=== PATIENT | female | born 1975 | race Caucasian/White ===

== ENCOUNTER 2016-07-14 16:25 | Emergency (ER) | payer OTHER ==
[~2016-07-14] VITALS: Ht 167.6 cm; Wt 80.3 kg
--- NOTE | 2016-07-14 17:58 | ED GI/GU/ABDOMINAL COMPLAINT ---
History of Present Illness General Chief Complaint: Abdominal Pain/Flank Pain Stated Complaint: SIB DR. CEE FOR ABD PAIN Source: patient, PCP Exam Limitations: no limitations Allergies Coded Allergies: adhesive tape (SURGICAL TAPE - BLISTERS, RASH 07/14/16) Reconcile Medications Albuterol Sulfate (Proair Hfa) 90 MCG HFA.AER.AD 2 PUF INH PRN EXERCISE INDUCED ASTHMA (Reported) Calcium Carbonate (Oyster Shell Calcium) (Unknown Strength) TABLET (Unknown Dose) PO DAILY SUPPLEMENT (Reported) Cholecalciferol (Vitamin D3) (Vitamin D) 2,000 UNIT TABLET 1 TAB PO DAILY SUPPLEMENT (Reported) Clonazepam 0.5 MG TABLET 1 TAB PO BID ANXIETY (Reported) Cyanocobalamin (Vitamin B-12) (Vitamin B-12) 250 MCG TABLET 1 TAB PO DAILY SUPPLEMENT (Reported) Duloxetine Hydrochloride (Cymbalta) 30 MG CAPSULE.DR 90 MG PO DAILY DEPRESSION (Reported) Ibuprofen (Advil Liqui-Gels) 200 MG CAPSULE 2 CAP PO PRN PAIN (Reported) Loperamide HCl (Loperamide) 2 MG CAPSULE 1 CAP PO PRN DIARRHEA (Reported) Multivitamin (Multi-Day Vitamins) 1 EACH TABLET 1 TAB PO DAILY SUPPLEMENT ( Reported) Pertuzumab (Perjeta) (Unknown Strength) VIAL (Unknown Dose) IV Q3W BREAST CANCER (Reported) Quetiapine Fumarate (Seroquel) 50 MG TABLET 1 TAB PO QPM SLEEP (Reported) Trastuzumab (Herceptin) (Unknown Strength) VIAL (Unknown Dose) IV Q3W BREAST CANCER (Reported) Triage Note: [facility] 2 [facility], SAW ONCOLOGIST AND GI DOCTOR OUT PATIENT WHO PRESCRIBED AN ANTIBIOTIC. PT REPORTING SHE INITIALLY HAD DIARRHEA BUT HAS HAD MORE CONSTIPATION AND "MUCUS" IN HER STOOL OVER PAST WEEK. PT REPORTING POOR APPETITE OVER PAST TWO WEEKS AND WORSENING ABD CRAMPING. Triage Nurses Notes Reviewed? yes ? N Is pt currently ? No Onset: Gradual Duration: week(s): (2) Timing: recent history Quality/Severity: cramping, fullness, moderate, sharpness Location: generalized abdomen Radiation: no radiation Activities at Onset: COLONOSCOPY Prior Abdominal Problems: none No Modifying Factors: none HPI: This is a 40-year-old female with history of breast cancer status post double mastectomy, total hysterectomy on chemotherapy who presents from Dr. James's office for chief complaint of abdominal pain for the past 2 weeks. 2 weeks ago she had a colonoscopy for persistent diarrhea. Since that time she has had abdominal pain, constipation. She is unable to pass gas. She states very occasionally when she pushes very hard she passes some mucus. Denies any blood in the stool. Positive nausea active appetite but no vomiting. No fever or chills. She states the colonoscopy results appeared normal but that they were waiting for biopsies of 3 areas of tissue. He did not have an endoscopy performed at that time. She's been on and off antibiotics apparently 5 times in the last 1 year. (ROBERT DENNY MD) Vital Signs & Intake/Output Vital Signs & Intake/Output Vital Signs Date Time Temp Pulse Resp B/P B/P Pulse O2 O2 Flow FiO2 Mean Ox Delivery Rate 07/14 2056 98.6 70 17 108/68 98 Room Air 07/14 1833 69 18 102/71 99 Room Air 07/14 1657 98.9 64 18 110/90 100 Room Air Past History Travel History Traveled to [place] past 21 day No Medical History Any Pertinent Medical History? see below for history Neurological: NONE EENT: NONE Cardiovascular: NONE Respiratory: NONE Gastrointestinal: NONE Hepatic: NONE Renal: NONE Musculoskeletal: NONE Psychiatric: anxiety, DEPRESSION Endocrine: NONE Blood Disorders: NONE Cancer(s): STAGE 4 BREAST CA RADIATION THERAPY TECHNOLOGIST/Reproductive: NONE Surgical History Surgical History: hysterectomy, masectomy Psychosocial History What is your primary language [place] Tobacco Use: Never used ETOH Use: denies use Illicit Drug Use: denies illicit drug use Family History Hx Contributory? No (ROBERT DENNY MD) Review of Systems Review of Systems Constitutional: Reports: weakness. Denies: chills, fever. EENTM: Reports: no symptoms. Respiratory: Denies: cough, short of breath. Cardiovascular: Denies: chest pain. GI: Reports: abdominal pain, bloating, constipation, nausea, changes in stool. Denies: bloody stool. Genitourinary: Reports: no symptoms. Musculoskeletal: Reports: no symptoms. Skin: Reports: no symptoms. Neurological/Psychological: Reports: anxiety. Hematologic/Endocrine: Denies: bruising, bleeding, polyuria, polydipsia. Immunologic/Allergic: Reports: no symptoms. All Other Systems: Reviewed and Negative (ROBERT DENNY MD) Physical Exam Physical Exam General Appearance: well developed/nourished, alert, awake, anxious, mild distress Head: atraumatic, normal appearance Eyes: Bilateral: PERRL, EOMI. Ears, Nose, Throat, Mouth: hearing grossly normal, moist mucous membrane Neck: normal inspection, supple, full range of motion Respiratory: normal breath sounds, chest non-tender, no respiratory distress, LEFT ANTERIOR CHEST WALL PORT Cardiovascular: regular rate/rhythm Peripheral Pulses: 2+ radial (R), 2+ radial (L) Gastrointestinal: normal bowel sounds, soft, tenderness (MILD DIFFUSE), NO REBOUND OR GUARDING Extremities: normal range of motion Neurologic/Psych: no motor/sensory deficits, awake, alert, oriented x 3 Skin: intact, normal color, warm/dry Core Measures ACS in differential dx? No Severe Sepsis Present: No Septic Shock Present: No (EDUIN GOMEZ,ROBERT) Progress Differential Diagnosis: bowel obstruction, ischemic bowel, pancreatitis, peptic ulcer, PUD/GERD, COLITIS Plan of Care: Orders Procedure Date/time Status URINE 07/14 1716 Complete URINALYSIS 07/14 1701 Complete LIPASE 07/14 1701 Complete HUMAN BETA HCG SCREEN 07/14 1701 Complete COMPREHENSIVE METABOLIC PANEL 07/14 1701 Complete CBC WITHOUT DIFFERENTIAL 07/14 1701 Complete AMYLASE 07/14 170 Complete Laboratory Tests 07/14/162001: Urine Test NEGATIVE 07/14/162001: Urine Color STRAW, Urine Clarity CLEAR, Urine pH 7.0, Ur Specific [place] 1.010, Urine Protein NEG, Urine Ketones NEG, Urine Nitrite NEG, Urine Bilirubin NEG, Urine Urobilinogen 0.2, Ur Leukocyte Esterase SMALL H, Ur Microscopic SEDIMENT EXAMINED, Urine RBC RARE, Urine WBC 1-3 H, Ur Epithelial Cells RARE, Urine Bacteria RARE H, Urine Hemoglobin NEG, Urine Glucose NEG 07/14/16 1805: Anion Gap 9, Estimated GFR > 60, BUN/Creatinine Ratio 17.5, Glucose 82, Calcium 9.5, Total Bilirubin 0.4, AST 30, ALT 39, Alkaline Phosphatase 50, Total Protein 7.1, Albumin 4.7, Globulin 2.4, Albumin/Globulin Ratio 2.0, Amylase 80, Lipase 288, Total Beta HCG NEGATIVE, CBC w Diff NO MAN DIFF REQ, RBC 4.30, MCV 90.5, MCH 30.1, RDW 13.2, MPV 7.3 L, Gran % 70.5, Lymphocytes % 20.1 L, Monocytes % 8.2, Eosinophils % 1.1, Basophils % 0.1, Absolute Granulocytes 5.4, Absolute Lymphocytes 1.5, Absolute Monocytes 0.6, Absolute Eosinophils 0.1, Absolute Basophils 0, PUBS MCHC 33.3 Microbiology 07/14 1718 STOOL: Clostridium difficile Toxin A & B - CAN Cancelled: SPECIMEN NEVER RECEIVED. PATIENT DEPARTED [facility] 07/14 1718 STOOL: Stool Culture - CAN Cancelled: SPECIMEN NEVER RECEIVED. PATIENT DEPARTED [facility] Initial ED EKG: none Hand-Off Endorsed To: MARILU GOMEZ,JANNY Jordan Endorsed Time: 1912 Pending: CT, labs (EDUIN GOMEZ,ROBERT) Diagnostic Imaging: Viewed by Me: CT Scan. Discussed w/RAD: CT Scan. Radiology Impression: PATIENT: GIAN MONACO PRESENT AGE: 40 PATIENT ACCOUNT NO: [id number] : 76 LOCATION: [facility] ORDERING PHYSICIAN: JANNY MICHEL MD SERVICE DATE: 07/14/16 EXAM TYPE: CAT - CT ABD & PELVIS W IV CONTRAST; CT CHEST W IV CONTRAST EXAMINATION: CT CHEST, ABDOMEN AND PELVIS WITH CONTRAST CLINICAL INFORMATION: Breast cancer. COMPARISON: None TECHNIQUE: Multidetector volumetric CT imaging of the chest was obtained after the administration of 95 mL of Optiray 320 intravenous contrast without immediate adverse reactions. Axial MIP volume rendering provided. Sagittal and coronal reformatted images were obtained. DLP: CT abdomen and pelvis with IV contrast 08/10/2016. 431 mGy-cm FINDINGS: CHEST: LUNGS: Both lungs are well-expanded and clear of acute pneumonic process. There is a 2 mm peripheral-based right upper lobe pulmonary nodule image 19, series 3 which appears stable. No additional pulmonary nodules seen. There is no mass or consolidation noted. MEDIASTINUM: The thyroid lobes are symmetrical. The central trachea and the bronchi widely patent. There are no abnormal size mediastinal or hilar lymph nodes. The heart size is normal. Left internal jugular port tip remains in SVC. PLEURA: There is no pleural effusion. No pleural mass or thickening. AXILLA: There are no abnormal axillary lymph nodes. There are surgical rae in bilateral axilla from previous lymph node dissection. There are bilateral breast implants present. There are stable compared to previous study. ABDOMEN AND PELVIS: LIVER AND GALLBLADDER: The liver is homogeneous in density without focal lesion or intrahepatic ductal dilatation. The gallbladder is distended and unremarkable. SPLEEN: Unremarkable. PANCREAS: Unremarkable. ADRENAL GLANDS: Unremarkable. TRACT: Both kidneys are normal size, shape and position. There are no solid enhancing lesion or hydronephrosis. No radiopaque calculi seen. GI TRACT: The bowel gas pattern is nonspecific with fluid and gas seen throughout the colon without distention. There are air and fluid-filled small bowel loops are of normal caliber. No free air or free fluid seen. VASCULAR: Unremarkable. LYMPH NODES: Unremarkable. ABDOMINAL WALL: Unremarkable. PELVIS: The bladder is unremarkable. The there is no free air or free fluid. No abnormal pelvic lymph nodes seen. BONES: There is no lytic or sclerotic process seen. IMPRESSION: Stable 2 mm right upper lobe peripherally based pulmonary nodule. No new nodules. No abnormal lymph nodes. No abnormal axillary lymph nodes except for previous lymph node dissection. Stable breast implants. There is no acute process in the abdomen. Air and fluid-filled small bowel loops without any distention. No abnormal lymph nodes or mass seen. DICTATED BY: OSCAR CUNNINGHAM MD DATE/TIME DICTATED:07/14/162027 AIRPLANE COVERER:VERONICA DATE/ TIME TRANSCRIBED:07/14/162027 CONFIDENTIAL, DO NOT COPY WITHOUT APPROPRIATE AUTHORIZATION. <Electronically signed in Other Vendor System> SIGNED BY: OSCAR CUNNINGHAM MD 07/14/162046 Comments: Laboratory data and CAT scan results have been discussed with the patient and family. Question of an answer. (MARILU GOMEZ,JANNY Jordan) Departure Departure Condition: Stable Referrals: PATIENT HAS NO PRIMARY CARE DR (PCP/Family) Departure Forms: Customer Survey General Discharge Information (EDUIN GOMEZ,ROBERT) Departure Disposition: HOME OR SELF CARE Clinical Impression Primary Impression: Upper abdominal pain, unspecified Additional Instructions: FOLLOW UP WITH DR. COLEMAN CROCKETT FOR ANY CONCERNS (MARILU GOMEZ,JANNY Jordan) (MAIRLU GMOEZ,JANNY Jordan)
[2016-07-14 18:15] LABS: ABSOLUTE BASOPHIL COUNT 0 /CUMM (0.0-0.2); ABSOLUTE EOSINOPHIL COUNT 0.1 /CUMM (0.0-0.7); ABSOLUTE GRANULOCYTE CT 5.4 /CUMM (1.4-6.5); ABSOLUTE LYMPH COUNT 1.5 /CUMM (1.2-3.4); ABSOLUTE MONOCYTE COUNT 0.6 /CUMM (0.10-0.60); BASOPHIL % 0.1 % (0.0-2.0); EOSINOPHIL % 1.1 % (0-5); GRANULOCYTE % 70.5 % (42.2-75.2); HEMATOCRIT 38.9 % (37-47); MEAN CORPUSCULAR HGB 30.1 PG (27.0-31.0); MEAN CORPUSCULAR HGB CONC 33.3 G/DL (33.0-37.0); MEAN CORPUSCULAR VOLUME 90.5 FL (81.0-99.0); MEAN PLATELET VOLUME 7.3 FL (7.4-10.4); PLATELET COUNT 259 /CUMM (130-400); RBC DISTRIBUTION WIDTH 13.2 % (11.5-14.5); WHITE BLOOD CELL COUNT 7.7 /CUMM (4.8-10.8)
[2016-07-14] MEDS ORDERED: PERJETA420 MG/14 IV (19:03)
[2016-07-14] MEDS ORDERED: HERCEPTIN IV (19:03)
[2016-07-14] MEDS ORDERED: OYSTER SHELL C500 M2 PO (19:07)
[2016-07-14] MEDS ORDERED: CLONAZEPAM0.5 M2 PO (19:07)
[2016-07-14] MEDS ORDERED: CYMBALTA30 M1 PO (19:08)
[2016-07-14] MEDS ORDERED: ADVIL LIQUI-GE200 M1 PO (19:09)
[2016-07-14] MEDS ORDERED: LOPERAMIDE2 M2 PO (19:10)
[2016-07-14] MEDS ORDERED: MULTI-DAY VITA1 EACH PO (19:10)
[2016-07-14] MEDS ORDERED: SEROQUEL50 M1 PO (19:11)
[2016-07-14] MEDS ORDERED: PROAIR HFA8.5 GM INH (19:11)
[2016-07-14] MEDS ORDERED: VITAMIN D2000 UNI1 PO (19:12)
[2016-07-14] MEDS ORDERED: VITAMIN B-12250 MCG PO (19:12)
--- NOTE | 2016-07-14 20:47 | CT SCAN REPORT ---
EXAMINATION: CT CHEST, ABDOMEN AND PELVIS WITH CONTRAST CLINICAL INFORMATION: Breast cancer. COMPARISON: None TECHNIQUE: Multidetector volumetric CT imaging of the chest was obtained after the administration of 95 mL of Optiray 320 intravenous contrast without immediate adverse reactions. Axial MIP volume rendering provided. Sagittal and coronal reformatted images were obtained. DLP: CT abdomen and pelvis with IV contrast 08/10/2016. 431 mGy-cm FINDINGS: CHEST: LUNGS: Both lungs are well-expanded and clear of acute pneumonic process. There is a 2 mm peripheral-based right upper lobe pulmonary nodule image 19, series 3 which appears stable. No additional pulmonary nodules seen. There is no mass or consolidation noted. MEDIASTINUM: The thyroid lobes are symmetrical. The central trachea and the bronchi widely patent. There are no abnormal size mediastinal or hilar lymph nodes. The heart size is normal. Left internal jugular port tip remains in SVC. PLEURA: There is no pleural effusion. No pleural mass or thickening. AXILLA: There are no abnormal axillary lymph nodes. There are surgical rae in bilateral axilla from previous lymph node dissection. There are bilateral breast implants present. There are stable compared to previous study. ABDOMEN AND PELVIS: LIVER AND GALLBLADDER: The liver is homogeneous in density without focal lesion or intrahepatic ductal dilatation. The gallbladder is distended and unremarkable. SPLEEN: Unremarkable. PANCREAS: Unremarkable. ADRENAL GLANDS: Unremarkable. TRACT: Both kidneys are normal size, shape and position. There are no solid enhancing lesion or hydronephrosis. No radiopaque calculi seen. GI TRACT: The bowel gas pattern is nonspecific with fluid and gas seen throughout the colon without distention. There are air and fluid-filled small bowel loops are of normal caliber. No free air or free fluid seen. VASCULAR: Unremarkable. LYMPH NODES: Unremarkable. ABDOMINAL WALL: Unremarkable. PELVIS: The bladder is unremarkable. The there is no free air or free fluid. No abnormal pelvic lymph nodes seen. BONES: There is no lytic or sclerotic process seen. IMPRESSION: Stable 2 mm right upper lobe peripherally based pulmonary nodule. No new nodules. No abnormal lymph nodes. No abnormal axillary lymph nodes except for previous lymph node dissection. Stable breast implants. There is no acute process in the abdomen. Air and fluid-filled small bowel loops without any distention. No abnormal lymph nodes or mass seen.
[2016-07-14 20:57] VITALS: BP 108/68
== END 2016-07-14 21:34 ==
LOC: ERH 16:25
PROVIDERS: Physician Assistant Medical
DX: R10.84 Generalized abdominal pain (principal)
CPT/HCPCS: 74177; 81001; 81025; 87045; 96361; 96374